=== PATIENT | male | born 1985 | race Caucasian/White ===

== ENCOUNTER 2017-09-14 02:40 | Emergency (ER) | payer OTHER ==
[~2017-09-14] VITALS: Ht 170.2 cm; Wt 72.7 kg
[2017-09-14] MEDS ORDERED: ALBU6.7H INH (02:59)
[2017-09-14] MEDS ORDERED: diphenhydrAMINE 25mg capsule PO ONE (03:00)
[2017-09-14 03:09] VITALS: BP 132/79
== END 2017-09-14 03:10 | disposition home or self-care (01) ==
LOC: ER 02:41
DX: R07.89 Other chest pain (principal); R06.00 Dyspnea, unspecified; F17.210 Nicotine dependence, cigarettes, uncomplicated; Z59.0 Homelessness; Z79.899 Other long term (current) drug therapy
CPT/HCPCS: 93005; 99283; 99406; Q0163